=== PATIENT | male | born 1960 | race Caucasian/White ===

== ENCOUNTER 2019-10-12 10:28 | Emergency (ER) | payer OTHER ==
[2019-10-12] MEDS ORDERED: dexAMETHasone 10 MG/ML VIAL ONE (11:13)
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
[2019-10-12 12:56] VITALS: TEMP 97.7
[2019-10-12 12:58] VITALS: BP 129/79; O2SAT 96
== END 2019-10-12 12:51 | disposition home or self-care (01) ==
LOC: ER 10:28
DX: S16.1XXA Strain of muscle, fascia and tendon at neck level, initial encounter (principal); M54.12 Radiculopathy, cervical region; V89.2XXA Person injured in unspecified motor-vehicle accident, traffic, initial encounter; Y92.89 Other specified places as the place of occurrence of the external cause; Y99.8 Other external cause status
CPT/HCPCS: 72125; 96372; 99283; J1100